=== PATIENT | male | born 1950 | race Caucasian/White ===

== ENCOUNTER 2019-02-10 20:46 | Inpatient (IN) | payer OTHER, MEDICARE ==
[~2019-02-10] VITALS: Ht 185.4 cm; Wt 99.7 kg
[~2019-02-10 20:46] MED LIST: Aspir 8181 MG PO; BUPR75 PO; SIMV80 PO; [UNRECOGNIZED DRUG - OTHER] PO
[2019-02-10 21:20] LABS: BASOPHILS ABSOLUTE AUTO 0.05 K/mm3 (0.00-0.23); BASOPHILS PERCENT AUTO 0 % (0-2); EOSINOPHILS ABSOLUTE AUTO 0.34 K/mm3 (0.00-0.68); EOSINOPHILS PERCENT AUTO 3 % (0-6); Hematocrit 46.7 % (37.0-53.0); Hemoglobin 15.8 g/dL (13.5-17.5); IMMATURE GRAN ABSOLUTE AUTO 0.07 K/mm3 (0.00-0.10); IMMATURE GRAN PERCENT AUTO 1 % (0-1); LYMPHOCYTES ABSOLUTE AUTO 3.96 K/mm3 (0.84-5.20); LYMPHOCYTES PERCENT AUTO 36 % (21-46); MONOCYTES ABSOLUTE AUTO 1.01 K/mm3 (0.16-1.47); MONOCYTES PERCENT AUTO 9 % (4-13); Mean Corpuscular HGB Conc 33.8 g/dL (31.5-36.5); Mean Corpuscular Volume 92 fL (80-100); Mean Platelet Volume 10.6 fL (9.1-12.4); NEUTROPHILS ABSOLUTE AUTO 5.73 K/mm3 (1.96-9.15); NEUTROPHILS PERCENT AUTO 51 % (41-73); Platelet Count 261 K/mm3 (150-400); RDW Coefficient Variation 13.9 % (11.7-14.2); RDW Standard Deviation 46.9 fL (35.1-46.3); White Blood Cell Count 11.16 K/mm3 (4.00-11.30)
[2019-02-10 21:36] LABS: International Normalized Ratio 1.03; Prothrombin Time Results 10.9 Sec (9.7-11.5)
[2019-02-10 21:47] LABS: Alanine Aminotransfer (ALT/SGP 32 U/L (12-78); Albumin, Blood 3.9 g/dL (3.4-5.0); Alk Phos 81 U/L (50-136); Anion Gap 12 mmol/L (6-16); Aspartate Aminotrans (AST/SGOT 43 U/L (12-37); Bilirubin, Total 0.5 mg/dL (0.1-1.0); Blood Urea Nitrogen 9 mg/dL (8-24); Bun/Creatinine Ratio 13.3 (12.0-20.0); CO2, Blood 22 mmol/L (21-32); Calcium, Blood 8.4 mg/dL (8.5-10.1); Chloride, Blood 107 mmol/L (98-108); Creatinine, Blood 0.68 mg/dL (0.60-1.20); Globulin, Blood 3.8 g/dL (2.2-4.0); Glomerular Filtration Rate >60 (60-); Glucose, Blood 94 mg/dL (70-99); Potassium, Blood 3.4 mmol/L (3.5-5.5); Sodium, Blood 141 mmol/L (136-145); Total Protein, Blood 7.7 g/dL (6.4-8.2)
[2019-02-10 22:08] LABS: Ethanol (Alcohol), Blood, Med 333 mg/dL
[2019-02-10] MEDS ORDERED: ELIQUIS5 MG PO (23:54)
[2019-02-10] MEDS ORDERED: Bentyl10 MG PO (23:56)
[2019-02-10] MEDS ORDERED: OMEPRAZOLE20 MG PO (23:58)
[2019-02-10] MEDS ORDERED: Synthroid88 MCG PO (23:58)
[2019-02-10] MEDS ORDERED: Isosorbide Mono30 MG PO (23:59)
[2019-02-11 00:11] LABS: Source, Urine Clean Catch
[2019-02-11 00:14] LABS: Bilirubin, Urine Neg (Neg); Blood, Urine Neg (Neg); Glucose Qualitative, Urine Neg (Neg); Ketones, Urine Neg (Neg); Leukocyte Esterase, Urine 1+ (Neg); Nitrite, Urine Neg (Neg); Protein, Urine 2+ (Neg); Urobilinogen, Urine NORM (Normal)
[2019-02-11 00:18] LABS: Appearance, Urine Clear (Clear); Color, Urine Yellow (P-Yellow)
[2019-02-11 00:33] LABS: Bacteria Few /hpf; Red Blood Cells, Urine Not Seen /hpf (0-2); Squamous Epithelial Cells Few /hpf (Few)
--- NOTE | 2019-02-11 02:10 | NUR ---
DR. SUN NOTIFIED: 1)HOLD LOVENOX FOR NOW AND ORDER TO GIVE POST-OP. 2) DO NOT ORDER PSYCH CONSULT AT THIS TIME. 3) PT SUICIDE PRECAUTIONS. 4) CONTACT ISOLATION FOR HX MRSA AND OPEN WOUND. 5) SOCIAL SERVICE CONSULT.
--- NOTE | 2019-02-11 02:21 | NUR ---
PT DENIED SI AND STATED DOES NOT HAVE CURRENT PLAN. PT WAS APOLOGETIC AND STATED, "I'M SORRY, OKAY" SEVERAL TIMES. WILL KEEP PT ON SI PRECAUTIONS.
[2019-02-11 03:17] LABS: Hematocrit 44.1 % (37.0-53.0); Hemoglobin 14.7 g/dL (13.5-17.5); Mean Corpuscular HGB 31.2 pg (26.0-34.0); Mean Corpuscular HGB Conc 33.3 g/dL (31.5-36.5); Mean Corpuscular Volume 94 fL (80-100); Mean Platelet Volume 10.1 fL (9.1-12.4); Platelet Count 224 K/mm3 (150-400); RDW Standard Deviation 48.8 fL (35.1-46.3); Red Blood Cell Count 4.71 M/mm3 (4.30-5.90); White Blood Cell Count 14.28 K/mm3 (4.00-11.30)
--- NOTE | 2019-02-11 03:17 | NUR ---
ICE: LEFT EXT ELEVATED ABOVE HEART. ICE BAGS PLACED. CAP REFILL <2 TO ALL DIGITS. DIGITS WARM, NAIL BEDS PINK X5.
[2019-02-11 03:34] LABS: Alanine Aminotransfer (ALT/SGP 35 U/L (12-78); Albumin, Blood 3.6 g/dL (3.4-5.0); Albumin/Globulin Ratio 1.1 (0.8-1.8); Alk Phos 76 U/L (50-136); Anion Gap 11 mmol/L (6-16); Aspartate Aminotrans (AST/SGOT 54 U/L (12-37); Bilirubin, Total 0.8 mg/dL (0.1-1.0); Blood Urea Nitrogen 8 mg/dL (8-24); Bun/Creatinine Ratio 12.3 (12.0-20.0); CO2, Blood 23 mmol/L (21-32); Calcium, Blood 8.1 mg/dL (8.5-10.1); Chloride, Blood 107 mmol/L (98-108); Creatinine, Blood 0.65 mg/dL (0.60-1.20); Globulin, Blood 3.3 g/dL (2.2-4.0); Glomerular Filtration Rate >60 (60-); Glucose, Blood 104 mg/dL (70-99); Potassium, Blood 3.6 mmol/L (3.5-5.5); Sodium, Blood 141 mmol/L (136-145); Total Protein, Blood 6.9 g/dL (6.4-8.2)
--- NOTE | 2019-02-11 08:01 | NUR ---
PATIENT AWAKE, ALERT, ORIENTED. WHEN ASKED, DENIED SI AND HAVING PLAN, BUT THEN MADE AN OFF HAND COMMENT ABOUT "NEEDING DR. LEACH." EDUCATED PATIENT THAT THESE COMMENTS INDICATE THAT HE IS THINKING ABOUT ENDING HIS LIFE. HE STATED THAT HE HAS BEEN FEELING MORE DEPRESSED LATELY; TWO "BUDDIES" OF HIS HAVE RECENTLY . ALSO INDICATED HE IS HAVING MARITAL PROBLEMS BUT WAS NOT SPECIFIC. HAS PROVIDER IN IN [facility]. SUGGESTED THAT HE AND TRY COUPLES COUNSELING TO GET HELP WITH THEIR PROBLEMS. STATED HE WILL GIVE IT THOUGHT.
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
--- NOTE | 2019-02-11 10:00 | NUR ---
PATIENT COLLECTED BY [facility] [facility] FOR TRANSPORT TO SURGERY. A&O X 3, PLEASANT, STATED PAIN IS 4/10. SAID QUICK PRAYER BEFORE LEAVING. POSSIBILITY OF PATIENT BEING TRANSFERRED TO SURGICAL POST OP.
[2019-02-11 10:07] LABS: U Amphetamine Screen Not Detected; U Barbituate Screen Not Detected; U Benzodiazapine Screen Not Detected; U Buprenorphine Screen Not Detected; U Cannabinoids Screen DETECTED; U Cocaine Screen Not Detected; U Methadone Screen Not Detected; U Methamphetamine Screen Not Detected; U Opiates Screen DETECTED; U Oxycodone Screen Not Detected; U Phencyclidine Screen Not Detected; U Propoxyphene Screen Not Detected
[2019-02-11] MEDS ORDERED: BUPR150ER PO (13:49)
--- NOTE | 2019-02-11 15:10 | NUR ---
PATIENT BELONGINGS CONSISTING OF FULL DENTURES, WALKING STICK, COWBOY BOOTS, AND CLOTHING SENT TO ROOM 228 VIA La MCNEIL RN.
--- NOTE | 2019-02-11 18:09 | NUR ---
SWELLING PT'S HAND HAS AN INCREASE OF SWELLING. PT REPORTS NUMBNESS THROUGHOUT HAND. ABLE TO FEEL PRESSURE. HAND IS DARKER THAN THE OTHER HAND. CAP REFILL <3 SECONDS. PHONE CALL PLACED TO DR. ARAUJO. AWAITING CALL BACK.
--- NOTE | 2019-02-11 18:18 | NUR ---
SWELLING DR. ARAUJO CALLED BACK. ORDERS TO ELEVATE LIMB, APPLY ICE AND REAPPLY WILLY WRAP ON THE EFFECTED LIMB.
--- NOTE | 2019-02-11 19:01 | NUR ---
SHIFT SUMMARY PT AA0X4 DURING SHIFT. VSS. PATIENT HAS BEEN RESTING IN BED AND PLEASANT DURING SHIFT. MEDICATED FOR PAIN DURING SHIFT. STATES RELIEF. BRACE AND WILLY WRAP IN PLACE. PT REPORTS NUMBNESS IN LEFT HAND AND INCREASE IN SWELLING. WILL REAPPLY AND LOOSEN WILLY WRAP, ICE IN PLACE AND ARM ELEVATED. TOLERATING PO WELL WITH SOME ASSISTANCE TO SET UP. DENIES NUMBNESS AND TINGLING IN OTHER EXTREMETIES. DENIES NAUSEA AT END OF SHIFT. NO TREMORS OR SHAKING NOTED.
--- NOTE | 2019-02-11 19:39 | NUR ---
L ARM SWELLING/NUMBNESS PT STARTED TO COMPLAIN OF INCREASED NUMBNESS THIS EVENING. HE REPORTS HIS L HAND IS NUMB. FINGERS APPEAR MORE SWOLLEN THAN IMMEDIATELY POST OP. WILLY WRAP LOOSENED PER DR. ARAUJO. L ARM ELEVATED ON PILLOWS ABOVE HEART LEVEL. WILL CONTINUE TO MONITOR PER DR. ARAUJO.
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
--- NOTE | 2019-02-12 10:14 | NUR ---
PT'S NOTIFIED THAT PT WILL MOST LIKELY DISCHARGE TOMORROW SO A RIDE HOME CAN BE ARRANGED FOR THE PT. SHE WAS EDUCATED THAT SOMEONE WILL NEED TO ARRIVE EARLY ENOUGH SO PRESCRIPTIONS CAN BE FILL BEFORE THE PHARMACY CLOSES.
--- NOTE | 2019-02-12 16:28 | NUR ---
SHIFT SUMMARY POD1 LEFT FOREARM FX. PT AA0X4. PT REPORTS MORE FEELING AND MORE COMFORT IN LEFT HAND. MEDICATED FOR PAIN WITH 2 PERCOCET TODAY TOLERATING WELL. CIWA SCORE OF 8, MEDICATED WITH LIBRIUM. PATIENT REPORTS RELIEF TO ANXIETY AND SWEATING AFTER RECEIVING. PATIENT TRANSFERS [place] [facility] [place] [facility] [place] [facility]/1ASSIS[facility]. PATIENT HAS BEEN POSITIVE AND COOPERATIVE WITH CARE TODAY. WILLY WRAP IN PLACE ARM ELEVATED AND ICE APPLIED.
--- NOTE | 2019-02-13 06:05 | NUR ---
SHIFT SUMMARY LYING IN LOW FOWLERS WITH EYES OPEN WHILE WATCHING TV. HAS BEEN PLEASANT AND COOPERATIVE AGAIN THIS SHIFT. HAS BEEN USING URINAL AND BSC SUCCESSFULLY THIS SHIFT. CIWA HAS STAYED BETWEEN 3-9, MEDICATED PRN. SAFETY MEASURES IN PLACE. WILL GIVE HAND OFF TO ONCOMING SHIFT USING SBAR.
--- NOTE | 2019-02-13 08:39 | NUR ---
DR HERE TO SEE PT AT THIS TIME.
--- NOTE | 2019-02-13 16:35 | NUR ---
SHIFT SUMMARY PT HAS BEEN UP TO CHAIR TODAY. TOLERATING FOOD AND FLUIDS. WORKED WITH PT/OT TODAY AND PSYCH CONSULT. PAIN MANAGED WITH PO PAIN MEDS PER ORDERS. ASSISTED WITH ADL'S PRN.
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
[2019-02-14] MEDS ORDERED: Percocet 5-3251 EACH PO (10:21)
--- NOTE | 2019-02-14 14:54 | NUR ---
DISCHARGE SUMMARY PT A&OX4, VSS, LEFT FLOOR VIA WC WITH PACKAGER TO GO HOME WITH FRIEND FROM [place], WITH ALL PERSONAL POSSESSIONS INCLUDING DC PACKET AND 1 NARC SCRIPT. DC INS PROVIDED. PT REP UNDERSTANDING THOSE INSTRUCTIONS INCLUDING USE CANE WITH ALL AMBULATION, SHORT FREQ AMB, LUE NWB, KEEP SPLINT CDI, FU WITH SG 2 WKS. IV DC'D.
== END 2019-02-14 14:24 | disposition home or self-care (01) | DRG 511 ==
LOC: ER 20:46 → ICUW 23:25 → SURS 23:25 → ER 23:25 → SURS 02-11 01:02 → ICUW 02-11 01:05 → SURS 02-11 14:34 → ICUW 02-11 14:34 → SURS 02-14 14:24
PROVIDERS: Emergency Medicine; Orthopaedic Surgery; ADMIT Internal Medicine
PROC: 0PSK04Z Reposition Right Ulna with Internal Fixation Device, Open Approach (ICD-10-PCS; 2019-02-11)
PROC: 2W3CX1Z Immobilization of Right Lower Arm using Splint (ICD-10-PCS; 2019-02-11)
PROC: 0PSH04Z Reposition Right Radius with Internal Fixation Device, Open Approach (ICD-10-PCS; principal; 2019-02-11 08:45)
DX: S52.252A Displaced comminuted fracture of shaft of ulna, left arm, initial encounter for closed fracture (principal); I48.20 Chronic atrial fibrillation, unspecified; R45.851 Suicidal ideations; E78.5 Hyperlipidemia, unspecified; F10.129 Alcohol abuse with intoxication, unspecified; F32.9 Major depressive disorder, single episode, unspecified; F43.10 Post-traumatic stress disorder, unspecified; G89.29 Other chronic pain; I10 Essential (primary) hypertension; K76.0 Fatty (change of) liver, not elsewhere classified; V89.2XXA Person injured in unspecified motor-vehicle accident, traffic, initial encounter; S52.352A Displaced comminuted fracture of shaft of radius, left arm, initial encounter for closed fracture; Y90.8 Blood alcohol level of 240 mg/100 ml or more; Z79.01 Long term (current) use of anticoagulants
CPT/HCPCS: 29125; 36415; 70450; 71260; 72125; 73090; 73130; 74177; 80053; 81001; 83690; 85025; 85027; 85610; 85730; 86850; 86900; 86901; 87081; 87086; 90471; 90714; 94762; 96361-59; 96374; 96375-59; 96376; 97110; 97116; 97162; 97165; 97530; 97535; 99285-25; A9270-GY; C1713; G0480; J0690; J1100; J1170; J1885; J2250; J2405; J2704; J2710; J3010; J3370; J3411; J3475; J7030; J7042; J7120; Q9967